=== PATIENT | female | born 1995 | race Two or more races ===

== ENCOUNTER 2017-04-01 13:06 | Emergency (ER) | payer OTHER ==
[~2017-04-01] VITALS: Ht 167.6 cm; Wt 59.0 kg
[2017-04-01 12:33] VITALS: BP 125/84
--- NOTE | 2017-04-01 12:53 | Emergency Room Report ---
History of Present Illness General Chief Complaint: Syncope Source: Patient (Marquita Carrillo) Present Illness HPI Patient is a 21-year-old female with no significant medical problems who presents today status post syncopal episode. Patient states she was waiting for the bus and she began feeling dizzy while standing and fell over. Patient sustained a laceration to her forehead. She is complaining of a headache rated at 7/10 in severity. She denies any nausea, vomiting, changes in vision or associated symptoms. She admits to smoking marijuana but denies other drug use. (Marquita Carrillo) Allergies: Coded Allergies: No Known Allergies (Unverified , 04/01/17) Patient History Last Menstrual Period: 03/06/17 Now: No : 0 Para: 0 Reviewed Nursing Documentation: PMH: Agreed, PSxH: Agreed (Marquita Carrillo) Nursing Documentation-PMH Past Medical History: No Stated History (Marquita Carrillo) Review of Systems Skin: Reports: other - laceration Neurological: Reports: syncope (Marquita Carrillo) Physical Exam Vital Signs Date Time Temp Pulse Resp B/P (MAP) Pulse Ox O2 Delivery O2 Flow Rate FiO2 04/01/17 12:33 98.4 88 16 125/84 100 Room Air Sp02 EP Interpretation: reviewed, normal General Appearance: no apparent distress, alert, GCS 15, non-toxic Head: normocephalic, atraumatic Eyes: bilateral eye normal inspection, bilateral eye PERRL ENT: hearing grossly normal, normal pharynx, no angioedema, normal voice Neck: full range of motion, supple/symm/no masses Respiratory: chest non-tender, lungs clear, normal breath sounds, speaking full sentences Cardiovascular #1: regular rate, rhythm, no edema Cardiovascular #2: 2+ carotid (R), 2+ carotid (L), 2+ radial (R), 2+ radial (L) , 2+ dorsalis pedis (R), 2+ dorsalis pedis (L) Gastrointestinal: normal bowel sounds, non tender, soft, non-distended, no guarding, no rebound Rectal: deferred Genitourinary: normal inspection, no CVA tenderness Musculoskeletal: back normal, gait/station normal, normal range of motion, non- tender, calf tenderness Neurologic: alert, oriented x3, responsive, motor strength/tone normal, sensory intact, speech normal, grossly normal Psychiatric: judgement/insight normal, memory normal, mood/affect normal, no suicidal/homicidal ideation Reflexes: 3+ bicep (R), 3+ bicep (L), 3+ tricep (R), 3+ tricep (L), 3+ knee (R) , 3+ knee (L) Skin: normal color, no rash, warm/dry, well hydrated, laceration Lymphatic: no adenopathy (Marquita Carrillo P.A.) Procedures Laceration/Wound Repair Laceration/Wound Repair : Consent: Verbal Wound Location: head Wound's Depth, Shape: irregular, contused tissue Wound Explored: no foreign body removed Irrigated w/ Saline (ccs): 30 Betadine Prep?: Yes Anesthesia: 1% Lidocaine Wound Debrided: minimal Wound Repaired With: sutures Suture Size/Type: 5:0, nylon Number of Sutures: 5 Layer Closure?: Yes Deep Layer Suture Size/Type: 4:0 Number Deep Layer Sutures: 3 Sterile Dressing Applied?: Yes Splint Applied?: No Patient Tolerated: Well Complications: None Progress Approximated wound edges as best possible. Educated pt about risk of scaring. Instructed to return in 5 days for suture removal (Marquita Carrillo P.A.) Medical Decision Making PA Attestation Supervising physician Dr. Zaragoza (Gerardo,Marquita P.A.) Diagnostic Impression: Primary Impression: Syncope Additional Impression: Laceration of forehead ER Course The patient had a syncopal episode and a laceration to her left forehead. Laceration is sutured and, dressing is placed. Patient is educated her risk of scarring and instructed to return in 5 days for suture removal. CT head is within normal limits. An labs are also within normal limits. Patient's found to be positive for marijuana on her UDS. EKG shows possible Q-wave, discussed case with Dr. Zaragoza who contacted the on-call cms expert, Dr. Love. Cardiology would like to follow up with patient in an outpatient setting. The the patient's given explicit return precautions. Patient understands and is agreeable with plan. (Gerardo,Marquita P.A.) ER Course EKG concerning of delta wave in V3. patient with normal vitals, neuro intact, normal labs. d/w Dr Love from cardiology, patient can follow up outpatient in his office. (Arcelia Zaragoza M.D.) EKG Diagnostic Results EKG Time: 13:33 EP Interpretation: sinus arrhythmia at 66, ?WPW and Q wave, No ST T wave changes (Marquita Carrillo) Chest X-Ray Diagnostic Results Chest X-Ray Diagnostic Results : Chest X-Ray Ordered: Yes # of Views/Limited/Complete: 1 View Indication: Chest Pain EP Interpretation: Yes PA Xray: Interpretation reviewed Interpretation: no consolidation, no effusion, no pneumothorax, no acute cardiopulmonary disease Impression: No acute disease Electronically Signed by: ELIZABETH (Marquita Carrillo) CT/MRI/US Diagnostic Results CT/MRI/US Diagnostic Results : Imaging Test Ordered: CT head: normal (Marquita Carrillo) Last Vital Signs Date Time Temp Pulse Resp B/P (MAP) Pulse Ox O2 Delivery O2 Flow Rate FiO2 04/01/17 12:33 98.4 88 16 125/84 100 Room Air Status: improved Reevaluation Impression Multiple reevaluations made, patient is well-appearing. In orthostatic vitals are positive, patient given IV fluids. Patient resting comfortably in on reevaluation stating she feels much better (Marquita Carrillo) Disposition: HOME, SELF-CARE Condition: Stable Scripts Hydrocodone Bit/Acetaminophen 5-325* (NORCO 5-325*) 1 Each Tablet 1 TAB ORAL Q4H Y for For Pain, #10 TAB 0 Refills Prov: Marquita Carrillo 04/01/17 Patient Instructions: Syncope Marquita Carrillo Apr 01, 2017 12:53 Arcelia Zaragoza M.D. Apr 01, 2017 16:55
[~2017-04-01 13:06] MED LIST: Morphine Sulfate 4mg/ml Inj IVP ONE
--- NOTE | 2017-04-01 13:37 | Diagnostic Imaging Report ---
Indications: Head trauma, syncopal episode L4 and laceration, headache Technique: Spiral acquisitions obtained through the brain. Angled axial and coronal 5 x 5 mm slices were reconstructed. Total dose length product 1562 mGycm. CTDI vol(s) 70 mGy. Dose reduction achieved using automated exposure control Comparison: None Findings: There is minimal left supraorbital soft tissue swelling. No underlying calvarial injury. No acute intracranial hemorrhage or edema. No mass effect or midline shift. Normal sesay-white differentiation. Visualized orbits and sinuses are unremarkable. The mastoids are clear Impression: Minimal left temporal scalp soft tissue swelling Otherwise, no acute intracranial bleed or mass effect The CT scanner at [facility] is accredited by the [employer] and the scans are performed using protocols designed to limit radiation exposure to as low as reasonably achievable to attain images of sufficient resolution adequate for diagnostic evaluation.
[2017-04-01 14:22] LABS: BASOPHILS % (AUTO) 0.9 % (0.0-2.0); LYMPHOCYTES % (AUTO) 14.3 % (20.0-45.0); MEAN CORPUSCULAR HEMOGLOBIN 28.5 PG (27.0-31.0); MEAN CORPUSCULAR HGB CONC 32.5 G/DL (32.0-36.0); MEAN CORPUSCULAR VOLUME 88 FL (80-99); MEAN PLATELET VOLUME 6.7 FL (6.5-10.1); MONOCYTES % (AUTO) 6.4 % (1.0-10.0); NEUTROPHILS % (AUTO) 77.4 % (45.0-75.0); PLATELET COUNT 257 K/UL (150-450); RED BLOOD COUNT 4.35 M/UL (4.20-5.40); RED CELL DISTRIBUTION WIDTH 12.5 % (11.6-14.8); WHITE BLOOD COUNT 12.8 K/UL (4.8-10.8)
[2017-04-01 14:30] VITALS: BP 132/84
[2017-04-01 14:37] LABS: ANION GAP 11 mmol/L (5-15); CALCIUM 9.1 MG/DL (8.5-10.1); CARBON DIOXIDE 24 MMOL/L (21-32); CHLORIDE 107 MMOL/L (98-107); CREATININE 0.9 MG/DL (0.55-1.30); GLOMERULAR FILTRATION RATE > 60 mL/min (>60); POTASSIUM 3.2 MMOL/L (3.5-5.1); SODIUM 142 MMOL/L (136-145)
[2017-04-01 14:42] VITALS: BP_SYST 122; BP_SYST 127; BP_SYST 132; BP_DIAS 61; BP_DIAS 79; BP_DIAS 84
[2017-04-01 14:42] LABS: ALANINE AMINOTRANSFERASE 19 U/L (12-78); ASPARTATE AMINO TRANSFERASE 17 U/L (15-37); TOTAL PROTEIN 7.7 G/DL (6.4-8.2)
[2017-04-01 16:00] LABS: APPEARANCE,URINE CLEAR; KETONES,URINE 2+ (NEGATIVE); LEUKOCYTE ESTERASE ,URINE NEGATIVE (NEGATIVE); NITRITE,URINE NEGATIVE (NEGATIVE); PH,URINE 8 (4.5-8.0); PROTEIN,URINE NEGATIVE (NEGATIVE); UROBILINOGEN,URINE 1 MG/DL (0.0-1.0)
[2017-04-01 16:11] LABS: BACTERIA,URINE OCCASIONAL /HPF; SQUAMOUS EPITHELIAL CELL,UR OCCASIONAL /LPF (NONE/OCC)
[2017-04-01] MEDS ORDERED: NORCO 5-325 TA1 EACH ORAL (16:45)
[2017-04-01] MEDS ORDERED: NKM (17:00)
[2017-04-01 17:07] VITALS: BP 122/79
--- NOTE | 2017-04-01 17:12 | Diagnostic Imaging Report ---
Indication: Chest pain Technique: One view of the chest Comparison: none Findings: Lungs and pleural spaces are clear. Heart size is normal. There is mild thoracic scoliotic deformity Impression: No acute process
--- NOTE | 2017-04-11 17:59 | Cardiology Report ---
APPROVED REPORT EKG Measurement Heart [id number] Sinus rhythm with marked sinus arrhythmia Otherwise normal ECG
== END 2017-04-01 17:07 | disposition home or self-care (01) ==
LOC: EDBD 13:06 → EMR 13:45
DX: R55 Syncope and collapse (principal); S01.81XA Laceration without foreign body of other part of head, initial encounter; W19.XXXA Unspecified fall, initial encounter; Y92.521 Bus station as the place of occurrence of the external cause
CPT/HCPCS: 12011; 36415; 70450; 71010; 80053; 80307; 81001; 81025; 84484; 85025; 93005; 96361; 96374; 96375; 99284; J2270; J2405; Z7502

== ENCOUNTER 2017-04-06 12:03 | Emergency (ER) | payer OTHER ==
[~2017-04-06] VITALS: Ht 165.1 cm; Wt 59.0 kg
[~2017-04-06 12:03] MED LIST changes: -Morphine Sulfate 4mg/ml Inj IVP ONE; +NKM; +NORCO 5-325 TA1 EACH ORAL
--- NOTE | 2017-04-06 12:46 | Emergency Room Report ---
History of Present Illness General Chief Complaint: Wound Recheck/Suture Removal Source: Patient Present Illness HPI 21-year-old female presents to the emergency department for suture removal of laceration that was closed approximately one week ago. Patient denies erythema , discharge, tenderness, pain or increased temperature to palpation. Patient is up-to-date with vaccinations including tetanus. wound is located to the left eyebrow Allergies: Coded Allergies: No Known Allergies (Unverified , 04/01/17) Patient History Past Medical History: see triage record Past Surgical History: none Pertinent Family History: none Last Menstrual Period: now Now: No Immunizations: UTD Reviewed Nursing Documentation: PMH: Agreed, PSxH: Agreed Nursing Documentation-PMH Past Medical History: No Stated History Review of Systems All Other Systems: negative except mentioned in HPI Physical Exam Vital Signs Date Time Temp Pulse Resp B/P (MAP) Pulse Ox O2 Delivery O2 Flow Rate FiO2 04/06/17 12:26 98.2 69 18 129/76 98 Room Air Sp02 EP Interpretation: reviewed, normal General Appearance: no apparent distress, alert, GCS 15, non-toxic Head: normocephalic, atraumatic Eyes: bilateral eye normal inspection, bilateral eye PERRL ENT: hearing grossly normal, normal voice Neck: full range of motion Respiratory: chest non-tender, lungs clear, normal breath sounds Cardiovascular #1: regular rate, rhythm Musculoskeletal: back normal, gait/station normal, normal range of motion, non- tender Neurologic: alert, oriented x3, responsive, motor strength/tone normal, sensory intact, speech normal Skin: normal color, no rash, warm/dry, well hydrated, wd healing/no infection noted - left eyebrow Lymphatic: no adenopathy Medical Decision Making PA Attestation Dr. Zaragoza is my supervising Physician whom patient management has been discussed with. Diagnostic Impression: Primary Impression: Encounter for removal of sutures ER Course 21-year-old female presents to the emergency department for suture removal of laceration that was closed approximately one week ago. Patient denies erythema , discharge, tenderness, pain or increased temperature to palpation. Patient is up-to-date with vaccinations including tetanus. wound is located to the left eyebrow Ddx considered but are not limited to laceration, tendon injury, cellulitis, dehiscence. Vital signs: are WNL, pt. is afebrile H&PE are most consistent with: healed laceration of the Left Eyebrow ORDERS: none required at this time, the diagnosis is clinical ED INTERVENTIONS: - 6 Sutures removed. DISCHARGE: At this time pt. is stable for d/c to home. Will provide printed patient care instructions, and any necessary prescriptions. Care plan and follow up instructions have been discussed with the patient prior to discharge. Last Vital Signs Date Time Temp Pulse Resp B/P (MAP) Pulse Ox O2 Delivery O2 Flow Rate FiO2 04/06/17 12:26 98.2 69 18 129/76 98 Room Air Disposition: HOME, SELF-CARE Condition: Stable Scripts Emollient Combination No.46 (MEDERMA) 20 Gm Cream..g. 1 APPLIC TP TID, #20 GM Prov: Nichole Dangelo 04/06/17 Patient Instructions: Suture Removal, Care After Additional Instructions: Take medications as directed. Follow up with a Primary Care Provider in 3-5 days, even if your symptoms have resolved. --Please review list of primary care clinics, if you do not already have a primary care provider Return sooner to ED if new symptoms occur, or current symptoms become worse. - Please note that this Emergency Department Report was dictated using [employer] technology software, occasionally this can lead to erroneous entry secondary to interpretation by the dictation equipment. Nichole Dangelo Apr 06, 2017 12:46
[2017-04-06] MEDS ORDERED: MEDERMA20 GM TP (12:48)
[2017-04-06 12:58] VITALS: BP 132/70
== END 2017-04-06 12:58 | disposition home or self-care (01) ==
LOC: EMR 12:35
DX: S01.112D Laceration without foreign body of left eyelid and periocular area, subsequent encounter (principal); X58.XXXD Exposure to other specified factors, subsequent encounter
CPT/HCPCS: 99282